=== PATIENT | male | born 1955 | race Caucasian/White ===

== ENCOUNTER 2018-11-15 15:24 | Emergency (ER) | payer OTHER ==
[~2018-11-15] VITALS: Wt 80.0 kg
[2018-11-15 15:32] VITALS: BP 144/85; PULSE 80; RESP 20
[2018-11-15] MEDS ORDERED: KETOROLAC 30 MG INJ IM STA (16:27)
[2018-11-15] MEDS ORDERED: LIDOCAINE 1% (MDV) 20 ML INJ SC ONE (16:30)
--- NOTE | 2018-11-15 18:35 | ERD ---
ER Documentation Chief Complaint Chief Complaint right thigh laceration from a chain saw, no active bleeding. dressing intac ROS All systems reviewed and are negative except as per history of present illness. PMhx/Soc History of Surgery: Yes (CABG) Anesthesia Reaction: No Hx Neurological Disorder: No Hx Respiratory Disorders: No Hx Cardiac Disorders: Yes (CAD) Hx Psychiatric Problems: No Hx Miscellaneous Medical Probl: Yes (LUPUS) Hx Alcohol Use: No Hx Substance Use: No Hx Tobacco Use: No Smoking Status: Never smoker Physical Exam Vitals Vital Signs Date Temp Pulse Resp B/P (MAP) Pulse Ox O2 O2 Flow FiO2 Time Delivery Rate 11/15/18 98.5 80 20 144/85 98 15:32 (104) Physical Exam Const: No acute distress Head: Atraumatic Eyes: Normal Conjunctiva Resp: Clear to auscultation bilaterally Cardio: Regular rate and rhythm, no murmurs Skin: 5 inch laceration on right anterior tight with 1 inch deep. Muscle tissue noted that is intact. Ext: No cyanosis, or edema Neur: Awake and alert Psych: Normal Mood and Affect Results 24 hrs Current Medications Medications Dose Sig/Jennifer Start Time Status Last (Trade) Ordered Route PRN Stop Time Admin Dose Reason Admin Lidocaine 20 ml ONCE ONCE 11/15/18 DC (Xylocaine SC 16:30 1% (Mdv) 20 11/15/18 16:31 ml) Ketorolac 30 mg ONCE STAT 11/15/18 DC 11/15/18 Tromethamine IM 16:27 16:41 (Toradol) 11/15/18 16:28 Bacitracin 1 applic ONCE ONCE 11/15/18 (Bacitracin TOP 19:00 0.5%/ Zinc 11/15/18 19:01 Oint) Procedures/MDM Patient was seen and evaluated for laceration. Wound irrigation with Betadine was performed followed by laceration repair. Under sterile technique, Lidocaine 1% was administered followed by 8 - 2.0 Ethilon absorbable sutures placed and 19 - 3.0 Prolene sutures placed. Patient tolerated the procedure well. Dressing application with bacitracin. Patient is stable and ready for discharge. F/U in 2 days for wound care. F/U in 10 days for suture removal. Patient was advised about nerve damage and possible scarring. Patient will be discharged with Keflex. Departure Diagnosis: Primary Impression: Laceration Condition: Stable Patient Instructions: Laceration, All Referrals: [facility] Additional Instructions: F/U in 2 days for wound check up. Paciente aconseja volver a Departamento de urgencias inmediatamente para sntomas nuevos o que empeoran . Paciente aconseja posteriores con el PCP en 2-3 dee . Paciente verbaliza la comprehensin y est de acuerdo con el tratamiento y el curso de accin. Si el paciente no tiene ninguna de atencin primaria pueden seguir con [facility] [address] [place] [address] o [facility] + [address] [address] JOSI PULIDO PA-C Nov 15, 2018 18:35
[2018-11-15] MEDS ORDERED: CEPH-443 PO (18:48)
[2018-11-15] MEDS ORDERED: IBUP800T48 PO (18:48)
[2018-11-15] MEDS ORDERED: BACITRACIN 0.5%/ZINC 28.35 GM OINT TOP ONE (19:00)
== END 2018-11-15 19:16 | disposition home or self-care (01) ==
LOC: FTE 15:24
DX: S71.111A Laceration without foreign body, right thigh, initial encounter (principal); I25.10 Atherosclerotic heart disease of native coronary artery without angina pectoris; W31.2XXA Contact with powered woodworking and forming machines, initial encounter; Y92.9 Unspecified place or not applicable; Z95.1 Presence of aortocoronary bypass graft
CPT/HCPCS: 12004; 96372; J1885; Z7502; Z7610

== ENCOUNTER 2018-11-17 12:56 | Emergency (ER) | payer OTHER ==
[~2018-11-17] VITALS: Ht 175.3 cm; Wt 80.0 kg
[~2018-11-17 12:56] MED LIST: CEPH-443 PO; IBUP800T48 PO
[2018-11-17 13:05] VITALS: BP 130/75; PULSE 77; RESP 18; Ht 175.3 cm; Wt 80.0 kg
[2018-11-17] MEDS ORDERED: BACITUD TOP (13:45)
--- NOTE | 2018-11-17 13:57 | ERD ---
ER Documentation Chief Complaint Chief Complaint RIGHT LEG WOUND CHECK HPI 63-year-old male presents for 2-day wound checkup. Patient had a laceration on his right leg which was sutured 2 days ago in the ER. Patient states that he needs to get his tetanus vaccine as he is not up-to-date. He has not been placing bacitracin on the wound. Patient denies any fevers, chills, discharge from wound site, bleeding, lockjaw. ROS All systems reviewed and are negative except as per history of present illness. Medications Home Meds Active Scripts Bacitracin* (Bacitracin Oint (UD)*) 1 Applic Oint, 1 APPLIC TOP BID for 7 Days, PKT APPLY TO Prov:TARUN MILTON 11/17/18 Ibuprofen* (Motrin*) 800 Mg Tab, 800 MG PO Q6, #30 TAB Prov:JOSI PULIDO PA-C 11/15/18 Cephalexin* (Keflex*) 500 Mg Capsule, 500 MG PO QID for 5 Days, CAP Prov:JOSI PULIDO PA-C 11/15/18 Allergies Allergies: Coded Allergies: No Known Allergy (Unverified , 11/17/18) PMhx/Soc History of Surgery: Yes (CABG) Anesthesia Reaction: No Hx Neurological Disorder: No Hx Respiratory Disorders: No Hx Cardiac Disorders: Yes (CAD HTN) Hx Psychiatric Problems: No Hx Miscellaneous Medical Probl: Yes (LUPUS) Hx Alcohol Use: No Hx Substance Use: No Hx Tobacco Use: No Smoking Status: Never smoker FmHx Family History: No diabetes, No coronary disease, No other Physical Exam Vitals Vital Signs Date Temp Pulse Resp B/P (MAP) Pulse Ox O2 O2 Flow FiO2 Time Delivery Rate 11/17/18 98.1 77 18 130/75 99 13:05 (93) Physical Exam Const: No acute distress Head: Atraumatic Eyes: Normal Conjunctiva ENT: Normal External Ears, Nose and Mouth. Neck: Full range of motion. No meningismus. Resp: Clear to auscultation bilaterally Cardio: Regular rate and rhythm, no murmurs Abd: Soft, non tender, non distended. Normal bowel sounds Skin: Laceration with overlying sutures noted to the left leg. There is no wound dehiscence noted. Sutures are intact. There is no bleeding or discharge noted. There is no edema, erythema, or surrounding cellulitis. Back: No midline or flank tenderness Ext: No cyanosis, or edema Neur: Awake and alert Psych: Normal Mood and Affect Results 24 hrs Current Medications Medications Dose Sig/Jennifer Start Time Status Last (Trade) Ordered Route PRN Stop Time Admin Dose Reason Admin Diphtheria/ 0.5 ml ONCE ONCE 11/17/18 Tetanus/Acell IM* 14:00 Pertussis 11/17/18 14:01 (Adacel) Bacitracin 1 applic ONCE ONCE 11/17/18 (Bacitracin TOP 14:00 Oint (Ud)) 11/17/18 14:01 Procedures/MDM MDM: Patient was given Tdap as he stated he was not up-to-date on his vaccines. In addition patient was prescribed bacitracin and advised to apply twice a day. Patient was advised to change dressings daily. The wound appears to be healing well with no concerns of acute infection at this time. No wound drainage or wound dehiscence noted. Tetanus is up-to-date. Post-procedural wound care was discussed with the patient. Low suspicion fore deep space infection, compartment syndrome, cellulitis, lymphangitis, or any emergent condition. There was no evidence of neurologic, vascular or tendon injury. At this time, patient is stable for discharge and outpatient management. I have instructed patient to return in 7 days for suture removal. I have discussed with the patient the possibility of needing to see a specialist for further workup and imaging studies if symptoms persist. I have instructed the patient to promptly return to the ER for any new or worsening symptoms including but not limited to increased pain, fever, nausea, vomiting, weakness or LOC. The patient and/or family expressed understanding of and agreement with this plan. All questions were answered. Home care instructions were provided. Communication with patient both during the exam and instructions for discharge were performed with using a finisher brush . Patient gave verbal confirmation to the practitioner, through the finisher brush, that they understood everythign that was being said to them. DISCLAIMER: Inadvertent spelling and grammatical errors are likely due to EHR/dictation software use and do not reflect on the overall quality of patient care. Also, please note that the electronic time recorded on this note does not necessarily reflect the actual time of the patient encounter. Departure Diagnosis: Primary Impression: Encounter for wound re-check Condition: Stable Patient Instructions: Wound Care, Wound Check, Lac F/U (No Infection) Referrals: [facility] (PCP) Additional Instructions: Return in 1 week for suture removal. Return sooner than that if worsening symptoms. TARUN MILTON Nov 17, 2018 13:57
[2018-11-17] MEDS ORDERED: BACITRACIN 0.9 GM OINT TOP ONE (14:00)
[2018-11-17] MEDS ORDERED: DIPHTH/TET/ACEL PERTUSS (ADULT) 0.5 ML VIAL IM* ONE (14:00)
== END 2018-11-17 14:14 | disposition home or self-care (01) ==
LOC: FTE 12:56
DX: Z48.00 Encounter for change or removal of nonsurgical wound dressing (principal); I10 Essential (primary) hypertension; I25.10 Atherosclerotic heart disease of native coronary artery without angina pectoris; Z23 Encounter for immunization; Z95.1 Presence of aortocoronary bypass graft
CPT/HCPCS: 90471; 90715; Z7502; Z7610

== ENCOUNTER 2018-11-23 11:19 | Emergency (ER) | payer OTHER ==
[~2018-11-23] VITALS: Ht 180.3 cm; Wt 72.0 kg
[~2018-11-23 11:19] MED LIST changes: +BACITUD TOP
[2018-11-23 11:26] VITALS: BP 134/81; PULSE 72; RESP 18; Ht 180.3 cm; Wt 72.0 kg
--- NOTE | 2018-11-23 12:54 | ERD ---
ER Documentation Chief Complaint Chief Complaint Came for right thigh suture removal placed in a week ago; healing well. HPI 63-year-old male presenting for suture removal on his right thigh. Patient had sutures placed 1 week ago when he cut himself with a skill saw. He has some mild pain surrounding the area however has no weakness and is unable to move his right leg without any difficulties. He denies any numbness or tingling. Denies other medical problems. NKDA. Surgical history denies. Social history denies ROS All systems reviewed and are negative except as per history of present illness. Medications Home Meds Active Scripts Bacitracin* (Bacitracin Oint (UD)*) 1 Applic Oint, 1 APPLIC TOP BID for 7 Days, PKT APPLY TO Prov:TARUN MILTON 11/17/18 Ibuprofen* (Motrin*) 800 Mg Tab, 800 MG PO Q6, #30 TAB Prov:JOSI PULIDO PA-C 11/15/18 Cephalexin* (Keflex*) 500 Mg Capsule, 500 MG PO QID for 5 Days, CAP Prov:JOSI PULIDO PA-C 11/15/18 Allergies Allergies: Coded Allergies: No Known Allergy (Unverified , 11/17/18) PMhx/Soc History of Surgery: Yes (CABG) Anesthesia Reaction: No Hx Neurological Disorder: No Hx Respiratory Disorders: No Hx Cardiac Disorders: Yes (CAD HTN) Hx Psychiatric Problems: No Hx Miscellaneous Medical Probl: Yes (LUPUS) Hx Alcohol Use: No Hx Substance Use: No Hx Tobacco Use: No Smoking Status: Never smoker FmHx Family History: No diabetes, No coronary disease, No other Physical Exam Vitals Vital Signs Date Temp Pulse Resp B/P (MAP) Pulse Ox O2 O2 Flow FiO2 Time Delivery Rate 11/23/18 97.9 72 18 134/81 99 11:26 (98) Physical Exam GENERAL: The patient is well-appearing, well-nourished, in no acute distress CHEST: Clear to auscultation bilaterally. There are no rales, wheezes or rhonchi. HEART: Regular rate and rhythm. No murmurs, clicks, rubs or gallops. EXTREMITIES: Equal pulses bilaterally. There is no peripheral clubbing, cyanosis or edema. No focal swelling or erythema. Full range of motion. Grossly neurovascularly intact. NEUROLOGIC: Alert and oriented. Cranial nerves II through XII intact. Motor strength in all 4 extremities with 5 out of 5 strength. Sensation grossly intact. Normal speech and gait. SKIN: Sutures in place along right thigh. No surrounding erythema or dehiscence of the wound. No fluctuance or warmth. No induration Procedures/MDM ER course: Half of the stitches removed however skin is slightly damp and I have concern for dehiscence if all sutures are removed. MDM: 63-year-old male presenting for suture removal. Skin is slightly damp so patient is recommended to go home clean and allow it to completely dry. Patient is told to return in 4 days for suture removal at that time. Patient is discharged with strict ER precautions. Patient is told symptoms change or worsen to return sooner. I have low suspicion for tendon or ligament injury. I have low suspicion for bone abnormality or muscle insufficiency. I have low suspicion for infectious process. All questions answered at discharge Departure Diagnosis: Primary Impression: Encounter for removal of sutures Condition: Stable Patient Instructions: Suture Removal, No Complication Referrals: [facility] YOU HAVE RECEIVED A MEDICAL SCREENING EXAM AND THE RESULTS INDICATE THAT YOU DO NOT HAVE A CONDITION THAT REQUIRES URGENT TREATMENT IN THE EMERGENCY DEPARTMENT. FURTHER EVALUATION AND TREATMENT OF YOUR CONDITION CAN WAIT UNTIL YOU ARE SEEN IN YOUR DOCTORS OFFICE WITHIN THE NEXT 1-2 DAYS. IT IS YOUR RESPONSIBILITY TO MAKE AN APPOINTMENT FOR FOLOW-UP CARE. IF YOU HAVE A PRIMARY DOCTOR --you should call your primary doctor and schedule an appointment IF YOU DO NOT HAVE A PRIMARY DOCTOR YOU CAN CALL OUR PHYSICIAN REFERRAL HOTLINE AT IF YOU CAN NOT AFFORD TO SEE A PHYSICIAN YOU CAN CHOSE FROM THE FOLLOWING [facility] [address] [facility]. [facility] [address] [facility]. [facility] [place] [address] [facility]. [facility] [address] [facility]. [facility] [address] [facility]. [facility]. [address] Additional Instructions: FOLLOW UP WITH YOUR PRIMARY CARE PHYSICIAN TOMORROW.Return to this facility if you are not improving as expected. ALESSANDRA HERRERA PA-C Nov 23, 2018 12:54
== END 2018-11-23 12:17 | disposition home or self-care (01) ==
LOC: FTE 11:19
DX: Z48.02 Encounter for removal of sutures (principal); I10 Essential (primary) hypertension; I25.10 Atherosclerotic heart disease of native coronary artery without angina pectoris; Z95.1 Presence of aortocoronary bypass graft
CPT/HCPCS: 99281